=== PATIENT | male | born 1945 | race Caucasian/White ===

== ENCOUNTER → 2016-08-21 | Outpatient (CLI) | payer MEDICARE ==
[2016-08-21 17:45] LABS: ALBUMIN 3.7 GM/DL (3.2-5.2); ALBUMIN/GLOBULIN RATIO 1.16 (1.00-1.93); BILIRUBIN,TOTAL 0.5 MG/DL (0.2-1.0); CALCIUM LEVEL 9.2 MG/DL (8.8-10.2); CREATININE FOR GFR 1.28 MG/DL (0.70-1.30); GLOMERULAR FILTRATION RATE 58.6 (>42); POTASSIUM SERUM 4.4 MEQ/L (3.5-5.1); TOTAL PROTEIN 6.9 GM/DL (6.4-8.2)
[2016-08-21 18:01] LABS: MEAN CORPUSCULAR HEMOGLOBIN 28.6 pg (27.0-33.0); MEAN CORPUSCULAR HGB CONC 32.6 g/dl (32.0-36.5); MEAN CORPUSCULAR VOLUME 87.8 fl (80.0-96.0); RED CELL DISTRIBUTION WIDTH 13.5 % (11.5-14.5); WHITE BLOOD COUNT 7.4 K/mm3 (4.0-10.0)
== END ==
LOC: M WUC 10:52
PROVIDERS: ATTEND Internal Medicine Endocrinology, Diabetes & Metabolism
DX: E55.9 Vitamin D deficiency, unspecified (principal)

== ENCOUNTER → 2017-10-07 | Outpatient (CLI) | payer MEDICARE | LOC: M WUC 13:33 | DX: R91.8 Other nonspecific abnormal finding of lung field (principal) | CPT/HCPCS: 71046 ==

== ENCOUNTER → 2017-12-24 | Outpatient (CLI) | payer MEDICARE ==
[2017-12-24 14:14] LABS: ALBUMIN 3.3 GM/DL (3.2-5.2); ALBUMIN/GLOBULIN RATIO 0.85 (1.00-1.93); ALKALINE PHOSPHATASE 155 U/L (45-117); ALT/SGPT 17 U/L (12-78); ANION GAP 8 MEQ/L (8-16); AST/SGOT 8 U/L (7-37); BILIRUBIN,TOTAL 0.3 MG/DL (0.2-1.0); BLOOD UREA NITROGEN 27 MG/DL (7-18); CALCIUM LEVEL 8.7 MG/DL (8.8-10.2); CARBON DIOXIDE LEVEL 29 MEQ/L (21-32); CHLORIDE LEVEL 102 MEQ/L (98-107); CHOLESTEROL LEVEL 66 MG/DL (<200); CHOLESTEROL RISK RATIO 2.357 (<5); CREATININE FOR GFR 1.18 MG/DL (0.70-1.30); GLOMERULAR FILTRATION RATE > 60.0 (>42); GLUCOSE, FASTING 227 MG/DL (70-100); HDL CHOLESTEROL 28 MG/DL (>40); NON-HDL-C 38 MG/DL; POTASSIUM SERUM 4.8 MEQ/L (3.5-5.1); SODIUM LEVEL 139 MEQ/L (136-145); TOTAL PROTEIN 7.2 GM/DL (6.4-8.2); TRIGLYCERIDES LEVEL 85 MG/DL (<150)
[2017-12-24 18:47] LABS: ESTIMATED AVERAGE GLUCOSE 189 MG/DL (60-110); HEMOGLOBIN A1c 8.2 %
== END ==
LOC: M WUC 08:31
DX: I95.1 Orthostatic hypotension (principal); E11.9 Type 2 diabetes mellitus without complications; I10 Essential (primary) hypertension; Z96.41 Presence of insulin pump (external) (internal)
CPT/HCPCS: 80053

== ENCOUNTER 2018-05-28 11:02 | Inpatient (IN) | payer MEDICARE ==
[2018-05-28 12:21] LABS: BASO % 0.4 % (0.0-1.0); EOS # 0.1 10^3/uL (0.0-0.50); EOS % 0.6 % (0.0-3.0); HEMATOCRIT 41.2 % (42.0-52.0); HEMOGLOBIN 13.8 g/dl (13.5-17.5); IMMATURE GRANULOCYTE % 0.3 % (0-3.0); MEAN CORPUSCULAR HEMOGLOBIN 27.6 pg (27.0-33.0); MEAN CORPUSCULAR HGB CONC 33.5 g/dl (32.0-36.5); MEAN CORPUSCULAR VOLUME 82.4 fl (80.0-96.0); MONO # 0.6 10^3/uL (0.0-0.8); MONO % 7.8 % (0.0-5.0); NEUTROPHILS # 6.2 10^3/uL (1.8-7.7); NEUTROPHILS % 77.9 % (36.0-66.0); PLATELET COUNT, AUTOMATED 237 10^3/uL (150-450); RED CELL DISTRIBUTION WIDTH 14.2 % (11.5-14.5)
[2018-05-28 12:34] LABS: ANION GAP 9 MEQ/L (8-16); BLOOD UREA NITROGEN 19 MG/DL (7-18); CALCIUM LEVEL 8.2 MG/DL (8.8-10.2); CARBON DIOXIDE LEVEL 26 MEQ/L (21-32); CHLORIDE LEVEL 102 MEQ/L (98-107); CPK CREATINE PHOSPHOKINASE 113 U/L (39-308); CREATININE FOR GFR 1.39 MG/DL (0.70-1.30); GLUCOSE, FASTING 222 MG/DL (70-100); MB/CK RELATIVE INDEX 3.54 (< OR =4); NT-PRO BNP 3402 PG/ML (<450); POTASSIUM SERUM 4.1 MEQ/L (3.5-5.1); SODIUM LEVEL 137 MEQ/L (136-145); TROPONIN I 0.26 NG/ML (< 0.10)
[2018-05-28 12:36] LABS: D-DIMER QUANT 1326.37 ng/ml (<500)
[2018-05-28] MEDS ORDERED: ISOVUE-370 76% 100ML VIAL (Q9967) As Ordered (13:06)
[2018-05-28] MEDS: FUROSEMIDE 40 MG/4 ML VIAL (J1940) IV ×2 (13:50→16:15)
[2018-05-28 14:49] LABS: CPK CREATINE PHOSPHOKINASE 110 U/L (39-308); MB/CK RELATIVE INDEX 3.64 (< OR =4); TROPONIN I 0.27 NG/ML (< 0.10)
[2018-05-28] MEDS: NITROGLYCERIN 2% OINT 1 GM *U/D* PKT TOP (15:00)
[2018-05-28] MEDS: METOPROLOL TART 50 MG TAB PO (15:00)
[2018-05-28] MEDS: METOPROLOL 5 MG/5 ML VIAL IV ×3 (15:00→15:10)
[2018-05-28] MEDS ORDERED: ALBUTEROL 90 MCG/ACT 8GM HFA INHALER INH (17:45)
[2018-05-28] MEDS ORDERED: HumaLOG INSULIN (NovoLOG) PER UNIT SC (17:45)
[2018-05-28 18:32] LABS: ANION GAP 4 MEQ/L (8-16); BLOOD UREA NITROGEN 16 MG/DL (7-18); CALCIUM LEVEL 8.4 MG/DL (8.8-10.2); CARBON DIOXIDE LEVEL 30 MEQ/L (21-32); CHLORIDE LEVEL 103 MEQ/L (98-107); CPK CREATINE PHOSPHOKINASE 110 U/L (39-308); CREATININE FOR GFR 1.36 MG/DL (0.70-1.30); GLOMERULAR FILTRATION RATE 54.4 (>42); GLUCOSE, FASTING 173 MG/DL (70-100); MB/CK RELATIVE INDEX 3.55 (< OR =4); SODIUM LEVEL 137 MEQ/L (136-145); TROPONIN I 0.35 NG/ML (< 0.10)
[2018-05-28 18:33] LABS: BEDSIDE GLUCOSE 165 MG/DL (83-110)
[2018-05-28] MEDS: METOPROLOL TART 25 MG TABLET PO (20:53)
[2018-05-28 22:05] LABS: BEDSIDE GLUCOSE 135 MG/DL (83-110)
[2018-05-28] MEDS: ADVAIR HFA 230/21MCG INHALER INH (23:40)
[2018-05-29 00:29] LABS: ANION GAP 6 MEQ/L (8-16); BLOOD UREA NITROGEN 21 MG/DL (7-18); CALCIUM LEVEL 8.3 MG/DL (8.8-10.2); CARBON DIOXIDE LEVEL 29 MEQ/L (21-32); CHLORIDE LEVEL 103 MEQ/L (98-107); CREATININE FOR GFR 1.53 MG/DL (0.70-1.30); GLOMERULAR FILTRATION RATE 47.5 (>42); GLUCOSE, FASTING 98 MG/DL (70-100); POTASSIUM SERUM 4.1 MEQ/L (3.5-5.1); SODIUM LEVEL 138 MEQ/L (136-145)
[2018-05-29 05:55] LABS: HEMATOCRIT 37.6 % (42.0-52.0); HEMOGLOBIN 12.4 g/dl (13.5-17.5); MEAN CORPUSCULAR HEMOGLOBIN 27.9 pg (27.0-33.0); MEAN CORPUSCULAR VOLUME 84.5 fl (80.0-96.0); PLATELET COUNT, AUTOMATED 231 10^3/uL (150-450); RED BLOOD COUNT 4.45 10^6/uL (4.30-6.10); RED CELL DISTRIBUTION WIDTH 14.3 % (11.5-14.5); WHITE BLOOD COUNT 7.9 10^3/uL (4.0-10.0)
[2018-05-29 06:13] LABS: ANION GAP 5 MEQ/L (8-16); BLOOD UREA NITROGEN 18 MG/DL (7-18); CALCIUM LEVEL 8.3 MG/DL (8.8-10.2); CARBON DIOXIDE LEVEL 30 MEQ/L (21-32); CHLORIDE LEVEL 105 MEQ/L (98-107); CREATININE FOR GFR 1.46 MG/DL (0.70-1.30); GLOMERULAR FILTRATION RATE 50.1 (>42); GLUCOSE, FASTING 91 MG/DL (70-100); MAGNESIUM LEVEL 2.1 MG/DL (1.8-2.4); POTASSIUM SERUM 3.8 MEQ/L (3.5-5.1); SODIUM LEVEL 140 MEQ/L (136-145)
[2018-05-29] MEDS: ADVAIR HFA 230/21MCG INHALER INH ×2 (07:28→21:16)
[2018-05-29] MEDS ORDERED: FUROSEMIDE 20 MG TAB PO (09:00)
[2018-05-29] MEDS: ENOXAPARIN 40 MG/0.4 ML SYRINGE (J1650) SC (09:27)
[2018-05-29] MEDS: FUROSEMIDE 40 MG/4 ML VIAL (J1940) IV (09:27)
[2018-05-29] MEDS: ATORVASTATIN 20 MG TAB PO (09:29)
[2018-05-29] MEDS: POTASSIUM CHLORIDE 10 MEQ SR TABLET PO (09:29)
[2018-05-29] MEDS: CILOSTAZOL 100 MG TAB (PLETAL) PO ×2 (09:29→17:33)
[2018-05-29] MEDS: ASPIRIN 81 MG ENTERIC TAB PO (09:29)
[2018-05-29] MEDS: CLOPIDOGREL 75 MG TAB PO (09:30)
[2018-05-29] MEDS: ENALAPRIL MALEATE 5 MG TAB PO (09:30)
[2018-05-29] MEDS: METOPROLOL TART 25 MG TABLET PO ×2 (09:31→20:53)
[2018-05-29 11:42] LABS: BEDSIDE GLUCOSE 116 MG/DL (83-110)
[2018-05-29 12:02] LABS: ANION GAP 6 MEQ/L (8-16); BLOOD UREA NITROGEN 20 MG/DL (7-18); CALCIUM LEVEL 8.5 MG/DL (8.8-10.2); CARBON DIOXIDE LEVEL 30 MEQ/L (21-32); CHLORIDE LEVEL 102 MEQ/L (98-107); CREATININE FOR GFR 1.41 MG/DL (0.70-1.30); GLOMERULAR FILTRATION RATE 52.2 (>42); GLUCOSE, FASTING 117 MG/DL (70-100); POTASSIUM SERUM 4.1 MEQ/L (3.5-5.1); SODIUM LEVEL 138 MEQ/L (136-145)
[2018-05-29 16:52] LABS: BEDSIDE GLUCOSE 161 MG/DL (83-110)
[2018-05-29 17:50] LABS: ANION GAP 6 MEQ/L (8-16); BLOOD UREA NITROGEN 22 MG/DL (7-18); CALCIUM LEVEL 8.6 MG/DL (8.8-10.2); CARBON DIOXIDE LEVEL 30 MEQ/L (21-32); CHLORIDE LEVEL 102 MEQ/L (98-107); CREATININE FOR GFR 1.47 MG/DL (0.70-1.30); GLOMERULAR FILTRATION RATE 49.7 (>42); GLUCOSE, FASTING 148 MG/DL (70-100); POTASSIUM SERUM 4.1 MEQ/L (3.5-5.1); SODIUM LEVEL 138 MEQ/L (136-145)
[2018-05-29 20:15] LABS: BEDSIDE GLUCOSE 249 MG/DL (83-110)
[2018-05-30 00:07] LABS: ANION GAP 7 MEQ/L (8-16); BLOOD UREA NITROGEN 25 MG/DL (7-18); CALCIUM LEVEL 8.3 MG/DL (8.8-10.2); CARBON DIOXIDE LEVEL 28 MEQ/L (21-32); CHLORIDE LEVEL 103 MEQ/L (98-107); CREATININE FOR GFR 1.67 MG/DL (0.70-1.30); GLOMERULAR FILTRATION RATE 42.9 (>42); GLUCOSE, FASTING 177 MG/DL (70-100); SODIUM LEVEL 138 MEQ/L (136-145)
[2018-05-30 05:51] LABS: HEMATOCRIT 36.4 % (42.0-52.0); HEMOGLOBIN 12.3 g/dl (13.5-17.5); MEAN CORPUSCULAR HEMOGLOBIN 28.1 pg (27.0-33.0); MEAN CORPUSCULAR HGB CONC 33.8 g/dl (32.0-36.5); MEAN CORPUSCULAR VOLUME 83.3 fl (80.0-96.0); PLATELET COUNT, AUTOMATED 228 10^3/uL (150-450); RED BLOOD COUNT 4.37 10^6/uL (4.30-6.10); RED CELL DISTRIBUTION WIDTH 14.1 % (11.5-14.5)
[2018-05-30 06:16] LABS: ANION GAP 4 MEQ/L (8-16); BLOOD UREA NITROGEN 23 MG/DL (7-18); CALCIUM LEVEL 8.4 MG/DL (8.8-10.2); CARBON DIOXIDE LEVEL 30 MEQ/L (21-32); CHLORIDE LEVEL 103 MEQ/L (98-107); GLOMERULAR FILTRATION RATE 48.6 (>42); GLUCOSE, FASTING 181 MG/DL (70-100); MAGNESIUM LEVEL 2.1 MG/DL (1.8-2.4); POTASSIUM SERUM 4.6 MEQ/L (3.5-5.1); SODIUM LEVEL 137 MEQ/L (136-145)
[2018-05-30] MEDS ORDERED: FUROSEMIDE 40 MG/4 ML VIAL (J1940) IV (09:00)
[2018-05-30] MEDS: METOPROLOL TART 25 MG TABLET PO (09:15)
[2018-05-30] MEDS: ATORVASTATIN 20 MG TAB PO (09:15)
[2018-05-30] MEDS: POTASSIUM CHLORIDE 10 MEQ SR TABLET PO (09:15)
[2018-05-30] MEDS: CILOSTAZOL 100 MG TAB (PLETAL) PO (09:16)
[2018-05-30] MEDS: CLOPIDOGREL 75 MG TAB PO (09:16)
[2018-05-30] MEDS: FUROSEMIDE 20 MG TAB PO (09:16)
[2018-05-30] MEDS: ENALAPRIL MALEATE 5 MG TAB PO (09:16)
[2018-05-30] MEDS: ASPIRIN 81 MG ENTERIC TAB PO (09:16)
[2018-05-30] MEDS: ENOXAPARIN 40 MG/0.4 ML SYRINGE (J1650) SC (09:17)
[2018-05-30] MEDS: ADVAIR HFA 230/21MCG INHALER INH (09:47)
[2018-05-30 11:35] LABS: BEDSIDE GLUCOSE 108 MG/DL (83-110)
== END 2018-05-30 15:03 | disposition home or self-care (01) | DRG 291 ==
LOC: M ED 11:02 → M ED INP 16:59 → M MSPAV 21:49
DX: I13.0 Hypertensive heart and chronic kidney disease with heart failure and stage 1 through stage 4 chronic kidney disease, or unspecified chronic kidney disease (principal); I50.33 Acute on chronic diastolic (congestive) heart failure; I24.8 Other forms of acute ischemic heart disease; N18.3 Chronic kidney disease, stage 3 (moderate); Z91.14 Patient's other noncompliance with medication regimen; E11.40 Type 2 diabetes mellitus with diabetic neuropathy, unspecified; J44.9 Chronic obstructive pulmonary disease, unspecified; D64.9 Anemia, unspecified; Z95.1 Presence of aortocoronary bypass graft; I25.2 Old myocardial infarction; Z88.8 Allergy status to other drugs, medicaments and biological substances; Z79.82 Long term (current) use of aspirin; Z79.899 Other long term (current) drug therapy; E78.5 Hyperlipidemia, unspecified; I25.10 Atherosclerotic heart disease of native coronary artery without angina pectoris

== ENCOUNTER → 2018-06-16 | Outpatient (CLI) | payer MEDICARE ==
[2018-06-16 13:29] LABS: ANION GAP 8 MEQ/L (8-16); BLOOD UREA NITROGEN 20 MG/DL (7-18); CALCIUM LEVEL 8.2 MG/DL (8.8-10.2); CARBON DIOXIDE LEVEL 27 MEQ/L (21-32); CHLORIDE LEVEL 103 MEQ/L (98-107); CREATININE FOR GFR 1.27 MG/DL (0.70-1.30); GLOMERULAR FILTRATION RATE 58.9 (>42); GLUCOSE, FASTING 159 MG/DL (70-100); POTASSIUM SERUM 4.2 MEQ/L (3.5-5.1); SODIUM LEVEL 138 MEQ/L (136-145)
== END ==
LOC: M WUC 09:20
DX: N39.0 Urinary tract infection, site not specified (principal)
CPT/HCPCS: 80048

== ENCOUNTER → 2018-07-28 | Outpatient (CLI) | payer MEDICARE ==
[~2018-07-28] MED LIST: ADVA230A INH; ALBU17IN2 INH; AMLO5TAB6 PO; ASPI1TAB PO; ASPI325T PO; ASPI81CH PO; ATEN25TA PO; ATOR40TA75 PO; CILO100T; CILO100T PO; CLOP75TA2; CLOP75TA2 PO; ENAL20TA PO; ENAL5TAB PO; FURO20TA2 PO; FURO40TA2; FURO40TA2 PO; GLUC1INJ11 IJ; GLUC1KIT INJ; INSUHUMDS SC; METO25TA4 PO; POTA1TAB14 PO; VENTAER INH
--- NOTE | 2018-07-28 12:52 | REP ---
Chest x-ray: Two views. History: Cough. Findings: The patient is status post prior median sternotomy. The lungs are well inflated and clear. Pleural angles are sharp. Heart size is normal and unchanged from comparison study May 28, 2018. Pulmonary vasculature is not increased. 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 Impression: No active disease post median sternotomy. Electronically Signed by Dominic Jacobs MD 07/28/2018 12:44 P
== END ==
LOC: M WUC 12:28
PROVIDERS: ATTEND Physician Assistant
DX: R05 Cough (principal)

== ENCOUNTER 2018-10-24 13:30 | Emergency (ER) | payer OTHER, MEDICARE ==
[~2018-10-24] VITALS: Ht 177.8 cm; Wt 101.8 kg
--- NOTE | 2018-10-24 14:02 | REP ---
CT Head without contrast HISTORY: Trauma COMPARISON: None Areas of decreased attenuation are present in the periventricular white matter. This represents small-vessel ischemic disease. There is no intraparenchymal hemorrhage, acute infarct, mass or midline shift. The ventricular system and cortical sulci are dilated consistent with minimal volume loss. There is no extra cerebral collection. There is no fracture. The visualized sinuses are clear. IMPRESSION: 1. Small vessel ischemic disease. 2. Minimal volume loss. Electronically Signed by Kayden Abebe MD 10/24/2018 01:53 P
--- NOTE | 2018-10-24 14:06 | REP ---
CT cervical spine without contrast HISTORY: Trauma COMPARISON: None There is no acute fracture or subluxation. Disc bulges are present at the C2-3, C4-5 and C5-6 levels. Disc bulges with associated osteophyte formation are present at the C3-4 and C6-7 levels. There is minimal narrowing of the spinal canal. Uncinate process hypertrophy is present at the C3-4 and C6-7 levels. This produces minimal to mild narrowing of the neural foramina. The C6-7 intervertebral disc is decreased in height consistent with disc degeneration. IMPRESSION: 1. There is no acute fracture or subluxation. 2. There is cervical spondylosis at the C2-3 through C6-7 levels. Electronically Signed by Kayden Abebe MD 10/24/2018 01:57 P
--- NOTE | 2018-10-24 15:16 | REP ---
Left forearm: Two views. History: Pain. Findings: AP and lateral views of the left forearm demonstrate mild olecranon and coronoid process spurring. There is medial and lateral epicondylar spurring as well. No fracture or subluxation is seen. Impression: No traumatic abnormality noted. Electronically Signed by Dominic Jacobs MD 10/24/2018 03:07 P
[2018-10-24 15:17] LABS: BASO # 0.1 10^3/uL (0.0-0.2); BASO % 0.6 % (0.0-1.0); EOS # 0.1 10^3/uL (0.0-0.50); EOS % 0.8 % (0.0-3.0); HEMATOCRIT 40.6 % (42.0-52.0); HEMOGLOBIN 13.9 g/dl (13.5-17.5); LYMPH # 1.7 10^3/uL (1.5-4.5); LYMPH % 19.5 % (24.0-44.0); MEAN CORPUSCULAR HEMOGLOBIN 28.5 pg (27.0-33.0); MEAN CORPUSCULAR HGB CONC 34.2 g/dl (32.0-36.5); MEAN CORPUSCULAR VOLUME 83.4 fl (80.0-96.0); MONO # 0.7 10^3/uL (0.0-0.8); MONO % 8.3 % (0.0-5.0); NEUTROPHILS % 70.4 % (36.0-66.0); PLATELET COUNT, AUTOMATED 205 10^3/uL (150-450); RED BLOOD COUNT 4.87 10^6/uL (4.30-6.10); WHITE BLOOD COUNT 8.5 10^3/uL (4.0-10.0)
--- NOTE | 2018-10-24 15:22 | REP ---
LEFT HUMERUS: Two views. HISTORY: Pain. FINDINGS: Two views of the left humerus demonstrate lateral epicondylar spurring. There is a soft tissue calcification adjacent to the medial epicondyle. These findings are unchanged from comparison elbow radiographs August 11, 2009. 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 This is unchanged from comparison chest x-ray July 28, 2018. AC joint is normally aligned. No fractures seen. IMPRESSION: No traumatic or other acute abnormality. Degenerative changes at the shoulder and elbow. Electronically Signed by Dominic Jacobs MD 10/24/2018 04:22 P
[2018-10-24 15:35] LABS: INR 1.17; PROTHROMBIN TIME 15.1 SECONDS (12.1-14.4)
[2018-10-24 15:36] LABS: PARTIAL THROMBOPLASTIN TIME 35.2 SECONDS (25.4-37.6)
[2018-10-24 15:38] LABS: CALCIUM LEVEL 8.6 MG/DL (8.8-10.2); CREATININE FOR GFR 1.68 MG/DL (0.70-1.30); GLOMERULAR FILTRATION RATE 42.6 (>42); POTASSIUM SERUM 4.2 MEQ/L (3.5-5.1)
[2018-10-24 16:19] VITALS: BP 119/57
== END 2018-10-24 16:39 | disposition home or self-care (01) ==
LOC: M ED 13:30
DX: S13.4XXA Sprain of ligaments of cervical spine, initial encounter (principal); S50.12XA Contusion of left forearm, initial encounter; V49.49XA Driver injured in collision with other motor vehicles in traffic accident, initial encounter; Y92.410 Unspecified street and highway as the place of occurrence of the external cause; N28.9 Disorder of kidney and ureter, unspecified; E10.9 Type 1 diabetes mellitus without complications; I10 Essential (primary) hypertension; J44.9 Chronic obstructive pulmonary disease, unspecified; E78.9 Disorder of lipoprotein metabolism, unspecified; I25.10 Atherosclerotic heart disease of native coronary artery without angina pectoris; I25.2 Old myocardial infarction; Z79.899 Other long term (current) drug therapy; Z79.82 Long term (current) use of aspirin; Z79.4 Long term (current) use of insulin; Z79.01 Long term (current) use of anticoagulants; Z88.8 Allergy status to other drugs, medicaments and biological substances; Z87.891 Personal history of nicotine dependence

== ENCOUNTER → 2018-10-24 | Outpatient (REF) | payer MEDICARE, OTHER ==
[~2018-10-24] MED LIST changes: +ASPI-1 PO; -ASPI1TAB PO; -ASPI325T PO; -ASPI81CH PO; +ASPI81CH49 PO; +ASPI81TA26 PO
== END ==
LOC: M LAB REF 12:27
PROVIDERS: ATTEND Internal Medicine
DX: R68.82 Decreased libido (principal); E11.65 Type 2 diabetes mellitus with hyperglycemia

== ENCOUNTER → 2019-02-04 | Outpatient (CLI) | payer MEDICARE ==
[~2019-02-04] MED LIST changes: +ISOVUE-370 76% 100ML VIAL (Q9967) As Ordered ONE
--- NOTE | 2019-02-04 14:21 | REP ---
CT angiography of the abdominal aorta and bilateral lower extremity runoff with IV contrast: CT angiography protocol. Abdominal aorta: There is occasional non stenotic calcified atheromatous plaque. There is no aneurysm. There are no stenoses at the origins of the celiac artery or SMA. There is mild stenosis at the origins of the renal arteries bilaterally. The DAGO is patent without stenosis. There is calcified atheromatous plaque in the common iliac arteries bilaterally without significant stenosis. There is no stenosis of the internal or external iliac arteries. There is a tiny calcific plaque in the internal iliac arteries bilaterally. There is no stenosis of the common femoral arteries or the superficial femoral arteries bilaterally. There are small calcific atheromatous plaque seen in the distal SFA s bilaterally. There are small calcific plaques in the popliteal arteries bilaterally. There is straight line runoff across the ankles through the posterior tibial arteries bilaterally. There are multiple small atheromatous plaques throughout the posterior tibial arteries bilaterally. The right anterior tibial and peroneal arteries terminate in the right calf. The left anterior tibial and peroneal arteries terminate in the right calf. There is reconstitution of the distal left anterior tibial artery above the ankle. There are multiple small atheromatous plaques throughout the anterior tibial and peroneal arteries bilaterally. CT of the abdomen and pelvis with IV contrast: There are no comparisons. The visualized lung [place] are unremarkable except for dependent atelectasis. The hepatic parenchyma, gallbladder, pancreas and spleen are unremarkable for patient age. The adrenals, kidneys are unremarkable. The bowel and mesentery are unremarkable. Pelvis: The appendix is unremarkable. The bladder is unremarkable. The pelvic bowel loops are unremarkable. There is no diverticulosis or diverticulitis. The bladder is unremarkable. 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 Electronically Signed by Presley Salazar MD 02/04/2019 02:14 P
== END ==
LOC: M RAD 12:31
PROVIDERS: ATTEND Surgery Vascular Surgery
DX: I70.213 Atherosclerosis of native arteries of extremities with intermittent claudication, bilateral legs (principal)
CPT/HCPCS: 75635; Q9967

== ENCOUNTER → 2019-08-25 | Outpatient (REF) | payer MEDICARE ==
[~2019-08-25] MED LIST changes: -ALBU17IN2 INH; -ISOVUE-370 76% 100ML VIAL (Q9967) As Ordered ONE; +PROV108A INH
== END ==
LOC: M LAB REF 16:21
PROVIDERS: ATTEND Nurse Practitioner Adult Health
DX: E11.65 Type 2 diabetes mellitus with hyperglycemia (principal)

== ENCOUNTER 2020-09-29 22:11 | Emergency (ER) | payer MEDICARE ==
[~2020-09-29] VITALS: Ht 177.8 cm; Wt 102.7 kg
[~2020-09-29 22:11] MED LIST changes: +AMLO1TAB24 PO; -AMLO5TAB6 PO; -ENAL20TA PO; +ENAL20TA11 PO; +ENAL5TA PO; -ENAL5TAB PO
[2020-09-29] MEDS ORDERED: ISOS1TAB35 PO (22:22)
[2020-09-29] MEDS ORDERED: BRIL90TA PO (22:22)
[2020-09-30] MEDS ORDERED: ONDANSETRON 4MG/2ML VIAL IV ONE (01:20)
[2020-09-30] MEDS: MORPHINE 4 MG/ML 1ML VIAL/SYRINGE (J2270) IV PRN ×2 (01:27→02:27)
[2020-09-30 01:29] LABS: BASO % 0.4 % (0.0-1.0); EOS # 0.1 10^3/uL (0.0-0.5); EOS % 0.5 % (0.0-3.0); HEMATOCRIT 41.7 % (42.0-52.0); HEMOGLOBIN 13.9 g/dl (13.5-17.5); LYMPH # 1.3 10^3/uL (1.5-5.0); LYMPH % 12.4 % (24.0-44.0); MEAN CORPUSCULAR HGB CONC 33.3 g/dl (32.0-36.5); MEAN CORPUSCULAR VOLUME 86.9 fl (80.0-96.0); MONO # 0.7 10^3/uL (0.0-0.8); MONO % 6.9 % (2.0-8.0); NEUTROPHILS % 79.4 % (36.0-66.0); PLATELET COUNT, AUTOMATED 193 10^3/uL (150-450); WHITE BLOOD COUNT 10.1 10^3/uL (4.0-10.0)
[2020-09-30 01:39] LABS: INR 1.13; PROTHROMBIN TIME 14.8 SECONDS (12.5-14.3)
[2020-09-30 01:40] LABS: PARTIAL THROMBOPLASTIN TIME 33.1 SECONDS (24.2-38.5)
[2020-09-30 01:45] VITALS: BP 172/57
== END 2020-09-30 03:20 | disposition home or self-care (01) ==
LOC: M ED 22:11
DX: K91.840 Postprocedural hemorrhage of a digestive system organ or structure following a digestive system procedure (principal); I25.10 Atherosclerotic heart disease of native coronary artery without angina pectoris; Z79.01 Long term (current) use of anticoagulants; Z79.899 Other long term (current) drug therapy; Z88.8 Allergy status to other drugs, medicaments and biological substances
CPT/HCPCS: 85025; 85610; 85730; 86850; 86900; 86901; 99284; J2270; J2405

== ENCOUNTER → 2022-08-20 | Outpatient (CLI) | payer MEDICARE ==
[~2022-08-20] MED LIST changes: +ALBU6.7H6 INH; +BRIL90TA PO; -CILO100T; -CILO100T PO; +CILO100T3; +CILO100T3 PO; +ENAL1TAB48 PO; -ENAL5TA PO; +ISOS1TAB35 PO; -PROV108A INH
== END ==
LOC: M WUC 11:53
PROVIDERS: ATTEND Internal Medicine
DX: R06.02 Shortness of breath (principal)

== ENCOUNTER → 2023-06-11 | Outpatient (CLI) | payer MEDICARE ==
[~2023-06-11] MED LIST changes: +ENAL1TAB52 PO; -ENAL20TA11 PO; +POTA-298 PO; -POTA1TAB14 PO
== END ==
LOC: M RAD 10:17
PROVIDERS: ATTEND Internal Medicine
DX: I65.23 Occlusion and stenosis of bilateral carotid arteries (principal)

== ENCOUNTER 2024-06-21 14:01 | Emergency (ER) | payer MEDICARE ==
[~2024-06-21] VITALS: Ht 177.8 cm; Wt 101.3 kg
[2024-06-21] MEDS ORDERED: FARX1TAB5 (14:31)
[2024-06-21] MEDS ORDERED: ENAL1TAB50 (14:31)
[2024-06-21] MEDS ORDERED: TORS20TA2 (14:31)
[2024-06-21 14:50] LABS: BASO # 0.1 10^3/uL (0.0-0.2); BASO % 0.7 % (0.0-1.0); EOS # 0.1 10^3/uL (0.0-0.5); EOS % 1.1 % (0.0-3.0); HEMATOCRIT 46.2 % (42.0-52.0); HEMOGLOBIN 15.5 g/dl (13.5-17.5); LYMPH # 3.4 10^3/uL (1.5-5.0); LYMPH % 28.1 % (24.0-44.0); MEAN CORPUSCULAR HEMOGLOBIN 29.2 pg (27.0-33.0); MEAN CORPUSCULAR HGB CONC 33.5 g/dl (32.0-36.5); MONO # 1.3 10^3/uL (0.0-0.8); MONO % 10.5 % (2.0-8.0); NEUTROPHILS # 7.2 10^3/uL (1.5-8.5); NEUTROPHILS % 59.3 % (36.0-66.0); PLATELET COUNT, AUTOMATED 203 10^3/uL (150-450); RED BLOOD COUNT 5.31 10^6/uL (4.30-6.10); WHITE BLOOD COUNT 12.2 10^3/uL (4.0-10.0)
[2024-06-21 15:07] LABS: HEMOGLOBIN A1c 8.9 % (4.0-6.0)
[2024-06-21 15:10] LABS: ACETONE/KETONE 0.07 MMOL/L (0.02-0.27); ALBUMIN 3.6 G/DL (3.2-5.2); BILIRUBIN,DIRECT 0.2 MG/DL (<0.4); BILIRUBIN,TOTAL 0.6 MG/DL (0.3-1.2); TOTAL PROTEIN 7.1 G/DL (5.7-8.2)
[2024-06-21 17:00] VITALS: BP 141/68
[2024-06-21 17:16] VITALS: O2SAT 98
[2024-06-21 17:38] VITALS: TEMP 97.2
== END 2024-06-21 17:44 | disposition home or self-care (01) ==
LOC: M ED 14:01
DX: E11.649 Type 2 diabetes mellitus with hypoglycemia without coma (principal); I10 Essential (primary) hypertension; E78.5 Hyperlipidemia, unspecified; J45.909 Unspecified asthma, uncomplicated; I44.4 Left anterior fascicular block; Z86.79 Personal history of other diseases of the circulatory system; Z88.8 Allergy status to other drugs, medicaments and biological substances; Z79.82 Long term (current) use of aspirin; Z79.02 Long term (current) use of antithrombotics/antiplatelets; Z79.4 Long term (current) use of insulin; Z79.899 Other long term (current) drug therapy

== ENCOUNTER → 2025-02-10 | Outpatient (CLI) | payer MEDICARE ==
[~2025-02-10] MED LIST changes: +ENAL1TAB50; +FARX1TAB5; -GLUC1KIT INJ; +GLUC1VIA14 INJ; +TORS20TA2
== END ==
LOC: M RAD 13:00
PROVIDERS: ATTEND Internal Medicine
DX: I73.9 Peripheral vascular disease, unspecified (principal)